=== PATIENT | female | born 1955 | race Caucasian/White ===

== ENCOUNTER 2019-03-23 07:05 | Day surgery (SDC) | payer OTHER ==
[~2019-03-23] VITALS: Ht 175.3 cm; Wt 33.1 kg
[~2019-03-23 07:05] MED LIST: CEFAZOLIN SOD 1 GM in D5W 50 ML IV ONE
[2019-03-23] MEDS ORDERED: PROPOFOL 200MG/ 20ML VIAL (DIPRIVAN) IV ONE (10:20)
[2019-03-23] MEDS ORDERED: MIDAZOLAM HCL 5 MG/5 ML VIAL IVP ONE (10:20)
[2019-03-23] MEDS ORDERED: CEFAZOLIN 1 GM IVPB PREMIX 50 ML IV ONE (10:20)
[2019-03-23] MEDS ORDERED: ISOSULFAN BLUE 5 ML VIAL (LYMPHAZURIN) INJ ONE (10:20)
[2019-03-23] MEDS ORDERED: NS IRRIG SOLN 1000 ML IR ONE (10:20)
[2019-03-23] MEDS ORDERED: fentaNYL CITRATE 250 MCG/5 ML AMP IV ONE (10:20)
[2019-03-23] MEDS ORDERED: BUPIVACAINE /PF 0.25% 30 ML VIAL INJ ONE (10:20)
[2019-03-23] MEDS ORDERED: ROCURONIUM BROMIDE 10 MG/ML (ZEMURON) IV ONE (10:20)
[2019-03-23] MEDS ORDERED: ONDANSETRON HCL 4 MG/2 ML VIAL IVP ONE (10:20)
[2019-03-23] MEDS ORDERED: SEVOFLURANE 15 MIN GAS INH ONE (10:20)
[2019-03-23] MEDS ORDERED: LR 1,000 ML IV.SOLN IV ONE (10:20)
[2019-03-23] MEDS ORDERED: LR 1,000 ML IV SCH (10:49)
[2019-03-23] MEDS ORDERED: MEPERIDINE HCL/PF 25 MG/ML DISP.SYRIN IVP PRN (11:00)
[2019-03-23] MEDS ORDERED: MEPERIDINE HCL/PF 50 MG/ML AMP IVP PRN ×2 (11:00)
[2019-03-23] MEDS ORDERED: HYDROcodone/ACETAMIN 5-325 MG TAB (NORCO/ VICODIN) PO PRN ×2 (12:45)
[2019-03-23] MEDS ORDERED: HYDROmorphone 1 MG INJ. 1 MG/ML AMPUL IVP PRN (12:45)
[2019-03-23] MEDS ORDERED: MEPERIDINE HCL/PF 50 MG/ML AMP ONE (13:18)
[2019-03-23 13:48] VITALS: BP_SYST 118
[2019-03-23] MEDS ORDERED: D5/0.45 NS 1,000 ML IV SCH (14:00)
[2019-03-23] MEDS: METOCLOPRAMIDE HCL 10 MG/2 ML VIAL IVP PRN ×2 (15:00→15:48)
[2019-03-23] MEDS ORDERED: METOCLOPRAMIDE HCL 10 MG/2 ML VIAL ONE (15:06)
== END 2019-03-23 16:25 | disposition home or self-care (01) ==
LOC: SMU 07:05 → SDS 07:05 → EDSTATUS 08:55 → SDS 16:25
PROVIDERS: ATTEND Colon & Rectal Surgery
DX: C50.911 Malignant neoplasm of unspecified site of right female breast (principal); N63.10 Unspecified lump in the right breast, unspecified quadrant; F32.9 Major depressive disorder, single episode, unspecified; G43.909 Migraine, unspecified, not intractable, without status migrainosus; Z88.2 Allergy status to sulfonamides; Z88.5 Allergy status to narcotic agent
CPT/HCPCS: 19125; 19281; 38525; 78195; 88305; 88307; 88333; 88342; A9541; G0463; J0690; J2175; J2250; J2405; J2704; J2765; J3010; J3490; J7060; J7120; Q9968; 88309